=== PATIENT | male | born 1935 | race Caucasian/White ===

== ENCOUNTER 2019-09-01 20:50 | Observation (INO) | payer MEDICARE, BC ==
[2019-09-01] MEDS ORDERED: Lorazepam 2 MG/ML VIAL SLOW IVP PRN (23:05)
[2019-09-01 23:12] VITALS: BMI 26.9
[2019-09-01] MEDS ORDERED: Ondansetron PF 4 MG/2 ML Vial IVP PRN (23:24)
[2019-09-01] MEDS ORDERED: Bisacodyl 5 MG TAB PO PRN (23:24)
[2019-09-01] MEDS ORDERED: Acetaminophen 325 MG TAB PO PRN (23:24)
[2019-09-01] MEDS ORDERED: Senokot S 8.6-50 MG TAB PO PRN (23:24)
[2019-09-01 23:47] LABS: ALT (SGPT) 14 U/L (8-55); AST (SGOT) 28 U/L (5-34); Albumin 3.8 g/dL (3.4-4.8); Alkaline Phosphatase 58 U/L (40-110); Anion Gap 12 mmol/L (10-20); BUN (Urea Nitrogen) 15 mg/dL (8.4-25.7); Bilirubin, Total 0.6 mg/dL (0.2-1.2); Calc. Creatinine Clearance 50 mL/min (70-130); Calcium 8.8 mg/dL (7.8-10.44); Carbon Dioxide 30 mmol/L (23-31); Chloride 101 mmol/L (98-107); Estimated GFR-MDRD 52; Globulin 2.4 g/dL (2.4-3.5); Glucose 110 mg/dL (83-110); Potassium 3.1 mmol/L (3.5-5.1); Protein, Total 6.2 g/dL (5.8-8.1); Sodium 140 mmol/L (136-145)
[2019-09-01 23:49] LABS: Troponin I 0.093 ng/mL (< 0.028)
[2019-09-02 04:51] LABS: Hemoglobin A1c 5.3 % (4.0-6.0)
[2019-09-02 04:55] LABS: Cardiac Risk 3.7 (Less than 4.5)
[2019-09-02] MEDS ORDERED: Zolpidem Tartrate 5 MG TAB PO PRN (05:54)
[2019-09-02] MEDS ORDERED: Meclizine HCl 25 MG TAB PO PRN (05:54)
--- NOTE | 2019-09-02 07:03 | HP ---
CHIEF COMPLAINT: Syncope. HISTORY OF PRESENT ILLNESS: Patient is an 84-year-old male who comes to the hospital with a syncopal episode. Patient has a history of CAD and hyperlipidemia. Patient states that around 4:30 p.m. today, he just did not feel very well and had a syncopal episode while he was sitting on his chair. Patient denies any precipitating factors, such as diaphoresis or any nausea, vomiting, or chest tightness. The patient stated that he was preparing his dinner at that time, just did not feel well and had a syncopal episode. There is no family at the bedside. I did try to call the patient's family and there was no answer. Patient also states that he does drink alcohol, however, his last alcoholic beverage was on Friday at 4:00 p.m. He denies any abdominal pain, any nausea, vomiting, any fevers, any chills, or any cough. He says that otherwise he has been doing fairly well. He is compliant with his medications according to him. Per the ER notes, it stated that there were some concerns for possible seizure-like activity. Also, by the EMS, it states that when picked from home, he had some stiffening and falling to the ground with a gurgling sound. He was responsive only to painful stimuli at this time. His sugars were checked and the sugars were normal. PAST MEDICAL HISTORY: He has a history of hyperlipidemia, vertigo, hypertension, and CAD. PAST SURGICAL HISTORY: He has a pacemaker, unknown reason and patient was unable to tell me. ALLERGIES: NO KNOWN DRUG ALLERGIES. HOME MEDICATIONS: He is on: 1. Atorvastatin 40 mg daily. 2. Clopidogrel 75 mg daily. 3. Meclizine as needed. 4. Olmesartan and hydrochlorothiazide 20-12.5 one tablet daily. SOCIAL HISTORY: Patient states that he does not smoke and does not use any recreational drugs. He is a full code. However, he does drink about 3 beers a day which he is trying to cut down from 5 or more for the past month and also drinks a fifth of liquor every 2 to 3 days. FAMILY HISTORY: No history of heart disease or strokes. REVIEW OF SYSTEMS: All negative, except for the ones mentioned above in the HPI. PHYSICAL EXAMINATION: VITAL SIGNS: As of the following; temperature of 98.8, 75, 16, 94% on room air, and 168/79. GENERAL: He is awake, alert, and oriented x3. Does not currently appear in any distress. CV: S1, S2 present. Sinus. LUNGS: Clear to auscultation. No rhonchi or wheezes noted. ABDOMEN: Soft, mild tenderness on palpation to the right lower quadrant. Otherwise, bowel sounds are normal. NEUROVASCULAR: No focal deficits noted. SKIN: No cuts, lesions, or bruises noted. LABORATORY RESULTS: His BMP was not done at the ER. His CBC indicated WBCs of 10.2, hemoglobin 14.6, and hematocrit of 45.8. His PTT was 21.7. His urine did show some abnormal glucose and otherwise normal. Ethanol level was less than 3. His sugar was 152. His chest x-ray did not show any acute abnormalities per the read nor did his CT head, just showed some involutional changes and chronic ischemic white matter changes. ASSESSMENT AND PLAN: Patient is a very pleasant 84-year-old male who presents to the hospital with syncope. 1. Syncope, unclear at this time. Patient is really not able to tell me much. He just says that he passed out. No family at the bedside to get a better history. I will go ahead and do multiple workup including possible seizures versus stroke versus syncope. We will go ahead and get an MRI of brain in the morning. We will get an echocardiogram. He is on a statin and on Plavix. We will continue that. We will consult Neurology. We will also get carotid Dopplers. We will get an EEG in the morning. We will also put him on protocol for possible alcohol withdrawal. I will get a BMP and a prolactin to see if he had any kind of seizure activity. 2. Hypertension. We will hold off on his blood pressure medications for now. 3. Hyperlipidemia. We will check a lipid panel in the morning. 4. Abnormally elevated glucose. We will check hemoglobin A1c. 5. DVT prophylaxis. We will put the patient on SCDs. Job ID: [id number]
[2019-09-02 07:44] LABS: Anion Gap 14 mmol/L (10-20); BUN (Urea Nitrogen) 13 mg/dL (8.4-25.7); Calc. Creatinine Clearance 60 mL/min (70-130); Calcium 8.5 mg/dL (7.8-10.44); Carbon Dioxide 25 mmol/L (23-31); Chloride 103 mmol/L (98-107); Estimated GFR-MDRD 64; Glucose 95 mg/dL (83-110); Potassium 3.1 mmol/L (3.5-5.1); Sodium 139 mmol/L (136-145); Troponin I 0.165 ng/mL (< 0.028)
[2019-09-02] MEDS: Folic Acid 1 MG TAB PO SCH (08:55)
[2019-09-02] MEDS: Allopurinol 100 MG TAB PO SCH (08:56)
[2019-09-02] MEDS: Thiamine 100 MG TAB PO SCH (08:56)
[2019-09-02] MEDS: Clopidogrel Bisulfate 75 MG TAB PO SCH (08:57)
[2019-09-02] MEDS: Enoxaparin Sodium 40 MG/0.4 ML SYRINGE SC SCH (08:58)
[2019-09-02] MEDS ORDERED: Aspirin 81 mg Enteric Coated Tablet PO SCH (09:00)
[2019-09-02 10:11] LABS: Troponin I 0.096 ng/mL (< 0.028)
--- NOTE | 2019-09-02 10:27 | MRI ---
Exam: Brain MRI without contrast HISTORY: Evaluate for stroke. COMPARISON: None FINDINGS: Calvarial marrow signal intensity: Appropriate T1 signal Gradient echo sequence: No hemorrhage Brain parenchyma: No mass, mass effect or midline shift. Brain volume, age-appropriate. Cortical regalado-white matter differentiation: Preserved Restricted diffusion: Central arterial flow voids are maintained. Absent restricted diffusion White matter signal intensities: T2, FLAIR white matter hyperintensities due to chronic small vessel ischemic changes Sinuses: Adequate aeration of the paranasal sinuses and mastoid air cells. IMPRESSION: 1. Absent restricted diffusion. No acute infarct. 2. Chronic small vessel ischemic changes of the white matter.
--- NOTE | 2019-09-02 11:54 | ULT ---
BILATERAL CAROTID DUPLEX ULTRASOUND: HISTORY: Stroke TECHNIQUE: Grayscale, color-flow and spectral Doppler ultrasound imaging of the extracranial carotid artery syst ems and vertebral arteries was performed bilaterally. FINDINGS: Scattered atherosclerotic plaque involving the distal right common carotid artery, carotid bifurcatio n and internal carotid artery The peak systolic velocity in the right ICA measures 37.0 cm/s. The peak systolic velocity in the ri ght CCA measures 47.5 cm/s. The peak systolic velocity in the left ICA measures 92.6 cm/s. The peak systolic velocity in the l eft CCA measures 53.8 cm/s. The right IC/CC ration is0.8. The left IC/CC ratio is 1.7. Vertebral flow: antegrade, bilaterally. . IMPRESSION: No hemodynamically significant stenosis of either carotid artery
[2019-09-02 12:54] LABS: Troponin I 0.087 ng/mL (< 0.028)
--- NOTE | 2019-09-02 14:39 | PDOC.HOSPP ---
- Subjective Encounter Date: 09/02/19 Encounter Time: 14:36 Subjective: Mr. Morillo was seen today in follow-up of altered mental status. I spoke with his on the phone, and she described the episode. She says he initially was slumped over in his chair, at the kitchen table, following making breakfast. He appeared sleep. She went back in to check on him a few minutes later, and he was still slumped over, but then raised his hand, but did not speak, His body then got stiff as a board, and he began to shake all over, and he slid to the floor. His teeth were clenched, and his face turned red. After this he was confused, and did not know who she was for about an hour. - Objective Vital Signs & Weight: Vital Signs (12 hours) Temp Pulse Pulse Pulse Pulse Resp BP 09/02/19 12:18 132/80 09/02/19 11:52 98.3 F 63 18 09/02/19 10:39 71 97 09/02/19 08:13 98 F 68 18 139/86 09/02/19 07:44 81 81 95 09/02/19 04:00 98.2 F 87 18 BP BP BP BP BP BP Pulse Ox 09/02/19 12:18 09/02/19 11:52 132/80 96 09/02/19 10:39 154/83 H 161/81 H 09/02/19 08:13 139/86 94 L 09/02/19 07:44 139/86 165/90 H 132/85 09/02/19 04:00 137/80 93 L Weight Admit Weight 187 lb 6.4 oz Weight 187 lb 6.4 oz I&O: 09/01/19 09/02/19 09/03/19 06:59 06:59 06:59 Output Total 400 Balance -400 Result Diagrams: 09/02/19 06:54 Hospitalist ROS - Medication Medications: Active Medications Generic Name Dose Route Start Last Admin Trade Name Freq PRN Reason Stop Dose Admin Acetaminophen 650 mg 09/01/19 23:24 09/02/19 08:54 Tylenol PO 650 mg Q4H PRN Administration Headache/Fever/Mild Pain (1-3) Allopurinol 100 mg 09/02/19 09:00 09/02/19 08:56 Zyloprim PO 100 mg DAILY CLIFF Administration Clopidogrel Bisulfate 75 mg 09/02/19 09:00 09/02/19 08:57 Plavix PO 75 mg DAILY CLIFF Administration Enoxaparin Sodium 40 mg 09/02/19 09:00 09/02/19 08:58 Lovenox SC 40 mg 0900 CLIFF Administration Folic Acid 1 mg 09/02/19 09:00 09/02/19 08:55 Folvite PO 1 mg DAILY CLIFF Administration Sodium Chloride 10 ml 09/01/19 22:28 09/02/19 08:59 Flush - Normal Saline IVF 10 ml PRN PRN Administration Saline Flush Thiamine HCl 100 mg 09/02/19 09:00 09/02/19 08:56 Thiamine PO 100 mg DAILY CLIFF Administration - Exam Eye: PERRL Heart: RRR, no murmur, no gallops, no rubs, normal peripheral pulses Respiratory: CTAB, no wheezes, no rales, no ronchi, normal chest expansion Gastrointestinal: soft, non-tender, non-distended, normal bowel sounds, no palpable masses, no hepatomegaly Extremities: no cyanosis, no clubbing, no edema Neurological: cranial nerve grossly intact, no focal deficits (Muscle strength in intact in both upper and lower extremities) Psychiatric: normal affect, normal behavior Hosp A/P (1) Seizure Code(s): R56.9 - UNSPECIFIED CONVULSIONS Status: Acute (2) Alcohol dependence Code(s): F10.20 - ALCOHOL DEPENDENCE, UNCOMPLICATED Status: Acute (3) Hypertension Code(s): I10 - ESSENTIAL (PRIMARY) HYPERTENSION Status: Acute (4) Dyslipidemia Code(s): E78.5 - HYPERLIPIDEMIA, UNSPECIFIED Status: Acute - Plan * Probable Seizure- work-up is in progress. This may be the result of an arrhythmia or withdrawal seizure or primary seizure Mri and carotid doppler are negative. Await Neurology input * HTN - blood pressure is stable- re-start Omesartan * Echo pending
[2019-09-02] MEDS ORDERED: Acetaminophen/Codeine 30-300mg Tablet PO PRN (14:48)
[2019-09-02] MEDS ORDERED: Potassium Chloride 20 MEQ TAB PO SCH (15:00)
--- NOTE | 2019-09-02 15:35 | CON ---
DATE OF CONSULTATION: 09/02/2019 CONSULTING PHYSICIAN: Hospitalist Service. IMPRESSION: Recurrent seizure. PLAN: Keppra 1500 mg now and discharged on 500 mg twice a day. HISTORY OF PRESENT ILLNESS: Mr. Morillo is an 84-year-old gentleman with a past history of hypertension, hyperlipidemia, and coronary artery disease, who presented after having a witnessed generalized tonic-clonic seizure. He reports that he had gone to sit down in the den while he is waiting for his food to cook. He lost consciousness and did not awaken until he was in the hospital. He reports that 3 weeks ago he had an episode in the middle of the night, where he found himself lying inside of a shower in his pajamas and had no idea how he had gotten there. He had injured his right wrist, but otherwise does not have any other details. He drinks alcohol on a regular basis. He had gone to bed about 8 o'clock that evening and that blackout occurred around 3 in the morning. He denies any past history of seizure activity prior to this. He denies any past stroke symptoms or head injuries. His MRI of the brain showed some small-vessel ischemic changes that were chronic. His EEG showed a normal background without epileptiform activity. His cholesterol ratio was 3.7. His electrolytes were all in normal range. PAST HISTORY: As listed above. ALLERGIES: NONE. SOCIAL HISTORY: Positive for alcohol. Negative for tobacco. FAMILY HISTORY: Noncontributory. REVIEW OF SYSTEMS: Ten-system review of systems is otherwise negative. PHYSICAL EXAMINATION: VITAL SIGNS: Blood pressure 139/86, pulse 68, respirations 18, and temperature 98. HEENT: Pupils equal. Conjunctivae clear. Oropharynx clear. Cranium, normocephalic and atraumatic. NECK: Supple. EXTREMITIES: No cyanosis or edema. NEUROLOGIC: He was alert and cooperative. His speech is fluent and clear. He follows commands appropriately. Cranial nerves were intact. Motor exam showed equal strength. Sensation was intact to touch. No abnormal movements were seen. He could walk independently. LABORATORY STUDIES: EKG shows a paced rhythm. SUMMARY: This is an elderly gentleman with recurrent blackout with reportedly witnessed seizure activity. I would go ahead and start him on Keppra and I will follow up with him in the office. Job ID: [id number]
[2019-09-02 15:38] LABS: Cardiac Risk 3.7 (Less than 4.5)
[2019-09-02] MEDS ORDERED: levETIRAcetam 500 MG TAB PO SCH (16:00)
--- NOTE | 2019-09-02 20:58 | EKG ---
Test Reason : STAT Blood Pressure : / mmHG Vent. Rate : 074 BPM Atrial Rate : 074 BPM P-R Int : 248 ms QRS Dur : 150 ms QT Int : 442 ms P-R-T Axes : 087 -14 099 degrees QTc Int : 490 ms Atrial-paced rhythm with prolonged AV conduction Left bundle branch block Abnormal ECG When compared with ECG of 19-JUN-2010 10:05, Left bundle branch block is now Present Confirmed by Trinidad BROWN ([id number]) on 09/02/2019 8:58:15 PM Referred By: CECIL Confirmed By:Trinidad BROWN
[2019-09-02] MEDS ORDERED: Atorvastatin Calcium 40 MG TAB PO SCH (21:00)
[2019-09-03 05:19] LABS: Anion Gap 11 mmol/L (10-20); BUN (Urea Nitrogen) 12 mg/dL (8.4-25.7); Calc. Creatinine Clearance 64 mL/min (70-130); Calcium 8.6 mg/dL (7.8-10.44); Carbon Dioxide 28 mmol/L (23-31); Chloride 104 mmol/L (98-107); Estimated GFR-MDRD 68; Glucose 95 mg/dL (83-110); Potassium 3.4 mmol/L (3.5-5.1); Sodium 140 mmol/L (136-145)
[2019-09-03 07:12] VITALS: BP 150/86; TEMP 97.6
[2019-09-03] MEDS: Allopurinol 100 MG TAB PO SCH (08:46)
[2019-09-03] MEDS: Clopidogrel Bisulfate 75 MG TAB PO SCH (08:46)
[2019-09-03] MEDS: Thiamine 100 MG TAB PO SCH (08:46)
[2019-09-03] MEDS: Folic Acid 1 MG TAB PO SCH (08:47)
[2019-09-03] MEDS: Enoxaparin Sodium 40 MG/0.4 ML SYRINGE SC SCH (08:47)
--- NOTE | 2019-09-03 09:26 | PDOC.HOSPP ---
- Subjective Encounter Date: 09/03/19 Encounter Time: 09:24 Subjective: Mr. Montejo was seen today in follow-up.He does not have any complaints. - Objective Vital Signs & Weight: Vital Signs (12 hours) Temp Pulse Resp BP BP Pulse Ox 09/03/19 07:10 97.6 F 63 18 150/86 H 94 L 09/03/19 03:12 98 F 66 18 151/82 H 96 Weight Admit Weight 187 lb 6.4 oz Weight 187 lb 6.4 oz I&O: 09/02/19 09/03/19 09/04/19 06:59 06:59 06:59 Intake Total 430 Output Total 400 Balance -400 430 Result Diagrams: 09/03/19 04:33 Hospitalist ROS - Medication Medications: Active Medications Generic Name Dose Route Start Last Admin Trade Name Freq PRN Reason Stop Dose Admin Acetaminophen 650 mg 09/01/19 23:24 09/02/19 08:54 Tylenol PO 650 mg Q4H PRN Administration Headache/Fever/Mild Pain (1-3) Allopurinol 100 mg 09/02/19 09:00 09/03/19 08:46 Zyloprim PO 100 mg DAILY CLIFF Administration Atorvastatin Calcium 40 mg 09/02/19 21:00 09/02/19 20:54 Lipitor PO Not Given HS [facility] Clopidogrel Bisulfate 75 mg 09/02/19 09:00 09/03/19 08:46 Plavix PO 75 mg DAILY CLIFF Administration Enoxaparin Sodium 40 mg 09/02/19 09:00 09/03/19 08:47 Lovenox SC 40 mg 0900 CLIFF Administration Folic Acid 1 mg 09/02/19 09:00 09/03/19 08:47 Folvite PO 1 mg DAILY CLIFF Administration HCTZ/Losartan Potassium 0.5 tab 09/03/19 09:00 09/03/19 08:46 Hyzaar 50/12.5 PO 0.5 tab DAILY CLIFF Administration Sodium Chloride 10 ml 09/01/19 22:28 09/02/19 08:59 Flush - Normal Saline IVF 10 ml PRN PRN Administration Saline Flush Thiamine HCl 100 mg 09/02/19 09:00 09/03/19 08:46 Thiamine PO 100 mg DAILY CLIFF Administration - Exam Eye: PERRL Heart: RRR, no murmur, no gallops, no rubs, normal peripheral pulses Respiratory: CTAB, no wheezes, no rales, no ronchi, normal chest expansion, no tachypnea, normal percussion Gastrointestinal: soft, non-tender, non-distended, normal bowel sounds, no palpable masses, no hepatomegaly, no splenomegaly Extremities: no cyanosis, no edema Hosp A/P (1) Seizure Code(s): R56.9 - UNSPECIFIED CONVULSIONS Status: Acute (2) Alcohol dependence Code(s): F10.20 - ALCOHOL DEPENDENCE, UNCOMPLICATED Status: Acute (3) Hypertension Code(s): I10 - ESSENTIAL (PRIMARY) HYPERTENSION Status: Acute (4) Dyslipidemia Code(s): E78.5 - HYPERLIPIDEMIA, UNSPECIFIED Status: Acute - Plan * New onset Seizures- patient has been started on Keppra * Echo results noted * Stable for discharge home
--- NOTE | 2019-09-03 13:28 | EEG ---
Referring Physician: CECIL EEG # [id number] TEST TYPE: ROUTINE PORTABLE INPATIENT REPORT: AN EEG USING THE [employer]NATIONAL TEN-TWENTY SYSTEM OF ELECTRODE PLACEMENT WAS PERFORMED. The waking background is a medium amplitude 10 hertz alpha frequency. The patient appeared to be awake throughout the study. There was some intermittent generalized slowing seen, but no epileptiform features. Photic stimulation was unremarkable. IMPRESSION: THIS IS A NORMAL AWAKE EEG. [employer]itarian: RAQUEL Resolution Specialist: EEG.ALEC RICHARDS
--- NOTE | 2019-09-03 14:25 | DIS ---
DATE OF ADMISSION: 09/01/2019 DATE OF DISCHARGE: 09/03/2019 DISCHARGE DISPOSITION: Home. DISCHARGE DIAGNOSES: 1. New onset seizure. 2. Hyperlipidemia. 3. Vertigo. 4. Hypertension. 5. Coronary artery disease. DISCHARGE MEDICATIONS: Include: 1. Ambien 10 mg at bedtime. 2. Tramadol 50 mg p.o. t.i.d. 3. Olmesartan/hydrochlorothiazide 20/12.5 one half tablet daily. 4. Antivert 25 mg q.i.d. as needed. 5. Lipitor 40 mg at bedtime. 6. Allopurinol 100 mg daily. 7. Tylenol No. 3 one to two tablets q.4 hours as needed. IMAGING DONE DURING HOSPITAL STAY: The patient had an echocardiogram, which demonstrated an EF of 55% to 60%. There was an E to A flow reversal noted suggestive of diastolic dysfunction. PROCEDURES PERFORMED: The patient had an MRI of the brain, which there was no evidence of any infarct. There was some chronic small-vessel ischemic change. The patient had bilateral carotid Dopplers showing no hemodynamically significant stenosis. CODE STATUS: Full code. ALLERGIES: NO KNOWN DRUG ALLERGIES. HOSPITAL COURSE: Mr. Morillo is a pleasant 84-year-old gentleman, who was admitted to the hospital after he had an episode, where he had lost consciousness and was shaking. The description of which sound is strongly like a seizure. He was placed in observation. He was evaluated by Neurology. An MRI was done, which was negative to rule out potential stroke. An echocardiogram was also done. There was no evidence of any significant arrhythmia and he was placed on Keppra as per the recommendations by Neurology. He was counseled on the need to not drive or operate any heavy machinery or any type of water activities, and he is to follow up with his primary care provider in 1 week and also with Neurology that is as instructed. Job ID: [id number]
== END 2019-09-03 10:41 | disposition home or self-care (01) ==
LOC: 2SE 20:51
PROVIDERS: ADMIT Emergency Medicine; ATTEND Emergency Medicine
DX: R56.9 Unspecified convulsions (principal); I10 Essential (primary) hypertension; I25.10 Atherosclerotic heart disease of native coronary artery without angina pectoris; E78.5 Hyperlipidemia, unspecified; F10.20 Alcohol dependence, uncomplicated; Z79.899 Other long term (current) drug therapy; Z95.0 Presence of cardiac pacemaker
CPT/HCPCS: 70551; 80048 ×2; 80053; 80061; 83036; 84146; 84443; 84484 ×3; 93005; 93306; 93880; 95816; 95819; 96372 ×2; 97139 ×5; 97530; G0378 ×3; 36415; 93010; J1650

== ENCOUNTER 2022-08-15 12:55 | Outpatient (CLI) | payer MEDICARE, BC | END 2022-08-15 12:56 | disposition home or self-care (01) | LOC: RAD 12:55 | PROVIDERS: ATTEND Dentist Periodontics | DX: Z03.821 Encounter for observation for suspected ingested foreign body ruled out (principal) | CPT/HCPCS: 71045; 74018 ==

== ENCOUNTER 2022-08-19 13:48 | Outpatient (CLI) | payer MEDICARE, BC | END 2022-08-19 13:49 | disposition home or self-care (01) | LOC: RAD 13:48 | PROVIDERS: ATTEND Dentist Periodontics | DX: T18.9XXA Foreign body of alimentary tract, part unspecified, initial encounter (principal) | CPT/HCPCS: 74018 ==

== ENCOUNTER 2023-05-11 17:00 | Inpatient (IN) | payer MEDICARE, BC ==
[~2023-05-11 17:00] MED LIST: Iopamidol-370 76% 500 ML MDV (1 ML CHARGE) ONE
[2023-05-11 17:20] LABS: #Eosinphils 0.2 thou/uL (0.0-0.7); #Monocytes 0.8 thou/uL (0.11-0.59); #Neutrophils 4.2 thou/uL (1.40-6.50); %Basophils 0.4 % (0.0-1.0); %Eosinophils 2.3 % (0.0-10.0); %Monocytes 11.4 % (0.0-10.0); %Neutrophils 57.5 % (42.0-75.0); Hematocrit 40.2 % (42.0-52.0); Hemoglobin 13.8 g/dL (14.0-18.0); Mean Corpuscular HGB CONC 34.3 g/dL (32.0-36.0); Mean Corpuscular Hemoglobin 31.7 pg (27.0-31.0); Mean Corpuscular Volume 92.2 fl (78.0-98.0); Mean Platelet Volume 8.9 fL (7.4-10.4); Platelet Count 180 10x3/uL (130-400); RBC Distribution Width 14.8 % (11.5-14.5); Red Blood Cell (RBC) Count 4.36 mill/uL (4.70-6.10); White Blood Cell (WBC) Count 7.4 10x3/uL (4.8-10.8)
[2023-05-11 17:46] LABS: Troponin I Less than 0.010 ng/mL (< 0.028)
[2023-05-11 17:50] LABS: ALT (SGPT) 10 U/L (8-55); AST (SGOT) 32 U/L (5-34); Alkaline Phosphatase 50 U/L (40-110); Anion Gap 15 mmol/L (10-20); BUN (Urea Nitrogen) 15 mg/dL (8.4-25.7); Bilirubin, Total 0.7 mg/dL (0.2-1.2); Calc. Creatinine Clearance 0 mL/min (70-130); Calcium 9.2 mg/dL (7.8-10.44); Carbon Dioxide 25 mmol/L (23-31); Chloride 90 mmol/L (98-107); Estimated GFR 55; Glucose 86 mg/dL (83-110); Magnesium 1.6 mg/dL (1.6-2.6); Potassium 4.3 mmol/L (3.5-5.1); Sodium 126 mmol/L (136-145)
[2023-05-11] MEDS ORDERED: hydrALAZINE 20 MG/ML VIAL SLOW IVP PRN (18:40)
[2023-05-11] MEDS ORDERED: Ondansetron PF 4 MG/2 ML Vial IVP PRN (18:40)
[2023-05-11] MEDS ORDERED: Ondansetron ODT 4 MG TAB PO PRN (18:40)
[2023-05-11] MEDS ORDERED: Acetaminophen 325 MG TAB PO PRN (18:40)
[2023-05-11] MEDS ORDERED: Aspirin Chewable 81 MG TAB ONE (18:41)
[2023-05-11] MEDS ORDERED: Sodium Chloride 0.9% 1,000 ML IV SCH (18:45)
[2023-05-11] MEDS ORDERED: Melatonin 3 MG TAB PO PRN (19:29)
[2023-05-11 19:52] LABS: Bacteria/HPF None Seen HPF (None Seen); Bilirubin Negative (Negative); Blood, Urine Negative (Negative); CAUTI Indications for Culture Alt mental st,lethar; Clarity Clear (Clear); Glucose, Urine (Dipstick) Normal (Negative); Ketone, Urine Negative (Negative); Leukocyte Negative Leu/uL (Negative); Nitrite Negative (Negative); Protein, Urine (Dipstick) Negative (Neg-Trace); RBC/HPF 0-3 HPF (0-3); Specific Gravity, Urine 1.022 (1.002-1.036); Squamous Epithelial None Seen HPF (0-3); Urobilinogen Normal mg/dL (Less than 2); WBC/HPF 0-3 HPF (0-3)
[2023-05-11 20:02] LABS: Urine Culture Reflex No No
[2023-05-11 22:12] VITALS: BMI 24.5
[2023-05-11] MEDS: Zolpidem Tartrate 5 MG TAB PO PRN (22:19)
[2023-05-11] MEDS: Atorvastatin Calcium 40 MG TAB PO SCH (22:19)
[2023-05-12 04:38] LABS: #Eosinphils 0.2 thou/uL (0.0-0.7); #Monocytes 0.7 thou/uL (0.11-0.59); #Neutrophils 3.8 thou/uL (1.40-6.50); %Basophils 0.3 % (0.0-1.0); %Eosinophils 2.5 % (0.0-10.0); %Lymphocytes 24.8 % (21.0-51.0); %Monocytes 11.6 % (0.0-10.0); %Neutrophils 60.6 % (42.0-75.0); Hematocrit 35.5 % (42.0-52.0); Hemoglobin 12.2 g/dL (14.0-18.0); Mean Corpuscular HGB CONC 34.4 g/dL (32.0-36.0); Mean Corpuscular Hemoglobin 31.3 pg (27.0-31.0); Mean Platelet Volume 9.1 fL (7.4-10.4); Platelet Count 181 10x3/uL (130-400); RBC Distribution Width 14.8 % (11.5-14.5); White Blood Cell (WBC) Count 6.3 10x3/uL (4.8-10.8)
[2023-05-12 04:45] LABS: Hemoglobin A1c 5.5 % (4.0-6.0)
[2023-05-12 05:04] LABS: Anion Gap 14 mmol/L (10-20); BUN (Urea Nitrogen) 14 mg/dL (8.4-25.7); Calc. Creatinine Clearance 53 mL/min (70-130); Calcium 8.8 mg/dL (7.8-10.44); Carbon Dioxide 24 mmol/L (23-31); Cardiac Risk 3.2 (Less than 4.5); Chloride 94 mmol/L (98-107); Cholesterol 177 mg/dl (< 200 Desired); Estimated GFR 67; Glucose 85 mg/dL (83-110); HDL Cholesterol 56 mg/dL (>60 Neg Risk); LDL Cholesterol, Calculated 103 mg/dL; Magnesium 1.5 mg/dL (1.6-2.6); Potassium 3.9 mmol/L (3.5-5.1); Sodium 128 mmol/L (136-145); Triglycerides 88 mg/dL (Less than 150)
[2023-05-12] MEDS ORDERED: Magnesium 2 GM/50 ML(in water) 2 GM in Premix 1 BAG IVPB SCH (08:45)
[2023-05-12] MEDS ORDERED: FLU VACC QS2023(65UP)/MF59C/PF 60 MCG/0.5 ML SYRINGE IM ONE (09:00)
[2023-05-12] MEDS: Aspirin 81 mg Enteric Coated Tablet PO SCH (09:54)
[2023-05-12] MEDS: Allopurinol 100 MG TAB PO SCH (09:54)
[2023-05-12] MEDS: Atorvastatin Calcium 40 MG TAB PO SCH (22:03)
[2023-05-12] MEDS: Zolpidem Tartrate 5 MG TAB PO PRN (22:03)
[2023-05-13 05:38] LABS: Anion Gap 11 mmol/L (10-20); BUN (Urea Nitrogen) 10 mg/dL (8.4-25.7); Calc. Creatinine Clearance 55 mL/min (70-130); Calcium 8.9 mg/dL (7.8-10.44); Carbon Dioxide 28 mmol/L (23-31); Chloride 95 mmol/L (98-107); Estimated GFR 69; Glucose 94 mg/dL (83-110); Potassium 3.7 mmol/L (3.5-5.1); Sodium 130 mmol/L (136-145)
[2023-05-13] MEDS: Allopurinol 100 MG TAB PO SCH (08:30)
[2023-05-13] MEDS: Aspirin 81 mg Enteric Coated Tablet PO SCH (08:30)
[2023-05-13] MEDS ORDERED: Multivit, Therapeutic 1 TAB PO SCH (09:00)
[2023-05-13] MEDS ORDERED: Folic Acid 1 MG TAB PO SCH (09:00)
[2023-05-13] MEDS ORDERED: Thiamine 100 MG TAB PO SCH (09:00)
[2023-05-13 10:32] VITALS: BP 132/70; TEMP 97.9
== END 2023-05-13 10:24 | disposition home or self-care (01) | DRG 68 ==
LOC: ERS 17:00 → 2NO 18:38
PROVIDERS: ADMIT Internal Medicine; ATTEND Internal Medicine
DX: I65.22 Occlusion and stenosis of left carotid artery (principal); E87.1 Hypo-osmolality and hyponatremia; I67.82 Cerebral ischemia; G45.9 Transient cerebral ischemic attack, unspecified; M10.9 Gout, unspecified; I25.10 Atherosclerotic heart disease of native coronary artery without angina pectoris; G47.33 Obstructive sleep apnea (adult) (pediatric); I10 Essential (primary) hypertension; E78.5 Hyperlipidemia, unspecified; I44.7 Left bundle-branch block, unspecified; E83.42 Hypomagnesemia; F10.20 Alcohol dependence, uncomplicated; Z79.82 Long term (current) use of aspirin; Z79.899 Other long term (current) drug therapy; Z95.828 Presence of other vascular implants and grafts; Z95.0 Presence of cardiac pacemaker; Z90.49 Acquired absence of other specified parts of digestive tract; Z90.89 Acquired absence of other organs; Z98.890 Other specified postprocedural states
CPT/HCPCS: 36415; 70450; 70496; 70498; 70551; 71045; 80048; 80053; 80061; 81001; 83036; 83605; 83735; 84443; 84484; 85025; 87086; 93005; 93306; 93880; 94760; J3475; J7050; Q9967